=== PATIENT | male | born 1955 | race Caucasian/White ===

== ENCOUNTER 2019-04-01 07:17 | Inpatient (IN) | payer OTHER ==
[2019-03-28 15:32] VITALS: BMI 22.8
--- NOTE | 2019-04-01 06:50 | HP ---
History & Physical Update - History History: No Change - Physical Physical: No Change - Assessment Assessment: No Change - Plan Plan: No Change (LBP w/ RLE radiculopathy. L5/S1 spondylolithesis. Here today for elective L5/S1 TLIF.)
[2019-04-01] MEDS ORDERED: oxyCODONE HCL 10 MG SUSTAINED ACTING TABLET PO STA (08:30)
[2019-04-01] MEDS ORDERED: CEFAZOLIN 2 GM/D5W 2 GM/50 ML ML IVPB ONE (08:30)
[2019-04-01] MEDS ORDERED: oxyCODONE HCL 10 MG SUSTAINED ACTING TABLET PO ONE (08:45)
[2019-04-01] MEDS ORDERED: BUPIVACAINE LIPOSOME/PF (EXPAREL) 266 MG/20 ML VIAL ONE (09:02)
[2019-04-01] MEDS ORDERED: SODIUM CHLORIDE 0.9% P/F 10 ML VIAL IJ ONE (09:02)
[2019-04-01] MEDS ORDERED: MIDAZOLAM HCL 2 MG/2 ML SINGLE DOSE VIAL ONE ×3 (09:03→11:23)
[2019-04-01] MEDS ORDERED: EPHEDRINE SULFATE/0.9% NACL/PF 50 MG/10 ML SYRINGE NR ONE (11:29)
[2019-04-01] MEDS ORDERED: GUM MASTIC/STORAX/MSAL/ALCOHOL 1 DRP DROPSBTL MC ONE (12:56)
[2019-04-01] MEDS ORDERED: ONDANSETRON 4 MG/2 ML VIAL IVPUSH PRN ×2 (13:06→13:25)
--- NOTE | 2019-04-01 13:22 | OP ---
Operative Note - Note: Operative Date: 04/01/19 Pre-Operative Diagnosis: L5/S1 spondylolithesis with RLE radiculopathy Operation: L5/S1 TLIF Post-Operative Diagnosis: Same as Pre-op Surgeon: Derek Griffin Automated Process Operator: Catarino Garcia Anesthesiologist/GUN NUMBERER: Juan Chapa Anesthesia: Spinal Specimens Removed: L5/S1 disc Estimated Blood Loss (mls): 30 Fluid Volume Replaced (mls): 1,000 Operative Report Dictated: Yes
--- NOTE | 2019-04-01 13:24 | SURG ---
Surgery Product Marketing Analyst Note Product Marketing Analyst: Catarino Garcia PA-C Date of Service: 04/01/19 Diagnosis: L5/S1 spondylolithesis with right lower extremity radiculopathy Procedure: Posterior lumbar decompression / fusion / instrumentation / transforaminal lumbar interbody fusion L5/S1 with allograft / neuromonitoring I was present for the entirety of the operative procedure. For further detail, please refer to operative report. Visit type - Case Type Case Type: Scheduled - New patient This patient is new to me today: Yes Date on this admission: 04/01/19
[2019-04-01] MEDS ORDERED: oxyCODONE HCL 5 MG TABLET PO PRN (13:25)
[2019-04-01] MEDS ORDERED: ACETAMINOPHEN 1000 MG/100 ML VIAL (NON FORMULARY) IVPB PRN (13:25)
[2019-04-01] MEDS: ACETAMINOPHEN 325 MG TABLET (FP) PO SCH (13:30)
[2019-04-01] MEDS: LACTATED RINGERS SOLUTION 1,000 ML IV SCH (13:30)
[2019-04-01] MEDS ORDERED: LACTATED RINGERS SOLUTION 1,000 ML IV SCH (13:30)
[2019-04-01] MEDS: CEFAZOLIN 1 GM/D5W 1 GM/50 ML BAG IVPB SCH (17:51)
[2019-04-01] MEDS: diazePAM 2 MG TABLET PO SCH (21:26)
[2019-04-01] MEDS ORDERED: ATORVASTATIN CA 10 MG TABLET (FP) PO SCH (22:00)
[2019-04-02] MEDS: ACETAMINOPHEN 325 MG TABLET (FP) PO SCH ×3 (00:03→11:49)
[2019-04-02] MEDS: CEFAZOLIN 1 GM/D5W 1 GM/50 ML BAG IVPB SCH ×2 (02:21→10:33)
[2019-04-02] MEDS: oxyCODONE HCL 5 MG TABLET PO PRN ×2 (03:53→11:50)
[2019-04-02 08:01] LABS: CALCIUM 8.6 mg/dl (8.5-10); CREATININE 1.1 mg/dl (0.55-1.3); POTASSIUM 3.8 mmol/L (3.5-5.1)
[2019-04-02 08:02] LABS: HEMOGLOBIN 11.8 GM/dl (11.7-16.9); MCH 33.8 pg (25.7-33.7); MCHC 34.8 g/dl (32.0-35.9); MEAN CELL VOLUME 97.1 fl (80-96); MEAN PLT VOLUME 7.9 fl (7.5-11.1); PLATELET COUNT 178 K/MM3 (134-434); RDW 12.2 % (11.9-15.9); WHITE BLOOD COUNT 11.2 K/mm3 (4.0-10.8)
--- NOTE | 2019-04-02 08:09 | DS ---
Physical Exam: SUBJECTIVE: Patient seen and examined OBJECTIVE: Vital Signs Temperature 99.0 F 04/02/19 06:00 Pulse Rate 70 04/02/19 06:00 Respiratory Rate 18 04/02/19 06:00 Blood Pressure 119/61 04/02/19 06:00 O2 Sat by Pulse Oximetry (%) 96 04/02/19 06:31 PHYSICAL EXAM GENERAL: The patient is awake, alert, and fully oriented, in no acute distress. HEAD: Normal with no signs of trauma. EYES: PERRL, extraocular movements intact, sclera anicteric, conjunctiva clear. ENT: Ears normal, nares patent, oropharynx clear without exudates, moist mucous membranes. NECK: Trachea midline, full range of motion, supple. LUNGS: Breathing comfortably, no accessory muscle use. BACK: dressing clean/intact, nontender EXTREMITIES: no weakness or numbness, warm, well-perfused, no edema. NEUROLOGICAL: Cranial nerves II through XII grossly intact. Normal speech, gait not observed. PSYCH: Normal mood, normal affect. SKIN: Warm, dry, normal turgor, no rashes or lesions noted. LABS CBC,CMP WBC 11.2 K/mm3 (4.0-10.8) H 04/02/19 07:20 RBC 3.50 M/mm3 (4.00-5.60) L 04/02/19 07:20 Hgb 11.8 GM/dl (11.7-16.9) 04/02/19 07:20 Hct 34.0 % (35.4-49) L 04/02/19 07:20 MCV 97.1 fl (80-96) H 04/02/19 07:20 MCH 33.8 pg (25.7-33.7) H 04/02/19 07:20 MCHC 34.8 g/dl (32.0-35.9) 04/02/19 07:20 RDW 12.2 % (11.9-15.9) 04/02/19 07:20 Plt Count 178 K/MM3 (134-434) 04/02/19 07:20 MPV 7.9 fl (7.5-11.1) 04/02/19 07:20 HOSPITAL COURSE: Date of Admission:04/01/19 Date of Discharge: 04/02/19 The patient was admitted to the Med-Surg Unit after an elective repair of their lumbar spondylosis Now, s/p L5-S1 TLIF. The day of surgery, the patient ambulated the hallways with assistance. Narcotic and non-narcotic pain management control was achieved with an oral and IV approach. POD #1, the surgical drain was removed fully intact and without incident. An xray was obtained and confirmed hardware placement at L5/S1, no fractures or dislocations. Marissa-operative IV ABX were administered. DVT prophylaxis was achieved with SCDs and early ambulation. The patient ambulated with Physical Therapy and no services were recommended upon discharge. Narcotic scripts and or muscle relaxants were checked with [place] [employer] CASE MANAGER prior to escibe. The discharge instructions and an oral pain management plan were reviewed with the patient. All questions answered. Above plan discussed with Dr. Griffin and agreed. Minutes to complete discharge: 20 Visit type - Case Type Case Type: Scheduled - Emergency Emergency Visit: No - New patient This patient is new to me today: No - Critical Care Critical Care patient: No
[2019-04-02] MEDS ORDERED: SODIUM CHLORIDE 0.9% 500 ML INFUS.BAG IV ONE (08:31)
--- NOTE | 2019-04-02 08:55 | OP ---
DATE OF OPERATION: 04/01/2019 PREOPERATIVE DIAGNOSES: 1. Spinal stenosis, L5-S1. 2. Spondylolisthesis, L5-S1. POSTOPERATIVE DIAGNOSES: 1. Spinal stenosis, L5-S1. 2. Spondylolisthesis, L5-S1. PROCEDURE PERFORMED: 1. Transforaminal lumbar interbody fusion, L5-S1. 2. Placement of instrumentation, L5-S1. 3. Placement of prosthetic cage. SURGEON: Derek Griffin MD INTERNATIONAL MARKETING MANAGER: DERRELL Ortega ESTIMATED BLOOD LOSS: 50 mL. INTRAVENOUS FLUIDS: Per anesthesia. ANESTHESIA: Spinal/TLIP. COMPLICATIONS: There were none. DISPOSITION: Patient brought to the PACU in stable condition. INDICATION FOR SURGERY: Patient is a 64-year-old gentleman who has been suffering from pain from his back down his legs. X-rays and MRI were completed which showed that he had spinal stenosis at L5-S1 with pain down his legs. He had gone through an exhaustive course of treatment for this which included medications, physical therapy as well as injections. Unfortunately his pain continued to persist despite all this. At this point risks, benefits, alternatives were discussed and the patient consented to surgery. DESCRIPTION OF PROCEDURE: Patient brought to the operating room by anesthesia staff. After appropriate patient identification was performed spinal anesthesia was given. A TLIP block was also given. Patient was able to position himself prone on to the OR table with all areas of bony prominences well padded. At this time 2 needles were placed into his back to bhavesh off the L5-S1 pedicles. His back was prepped and draped in the usual sterile manner. At this point timeout was completed. Incisions were made bilaterally over the L5-S1 pedicles. Dissection was carried down to the fascia. Fascia was then split at this time. Under C-arm guidance trocars were advanced into both the L5 and S1 pedicles. Through the trocars a wire was inserted. Over the wire tap was performed and screws inserted. On the right-hand side retractor blades were set up to expose the L5- S1 facet joint. The facet joint was removed. The disk was entered using a series of pituitaries, Kerrisons and curets. A diskectomy was completed. The endplates were decorticated at this time. Bone graft was laid down. A cage filled with bone graft was placed in. Tulip heads were placed over the screws. A danay was measured and placed in the caps. Compression was applied. On the left-hand side a danay was measured, placed in the caps and compression was applied. All x-rays confirmed instrumentation was removed at this time. The fascia was closed with a No. 1 Vicryl suture. The subcutaneous tissue was closed with 2-0 Vicryl suture. Skin was closed with 3-0 Monocryl suture. Dermabond was applied. Steri-Strips were applied. A sterile dressing was applied. Patient placed supine on the OR bed and brought to the PACU in stable condition. Teressa [id number] MTDD
--- NOTE | 2019-04-02 09:17 | PN ---
Progress Note (short form) - Note Progress Note: ANESTHESIA POSTOP: 64 yo male, POD#1, s/p lumbar fusion Patient sitting in chair. No complaints. Tolerating PO. Pain adequately controlled. VSS, Afebrile Continue current care, encouraged IS and ambulation. No anesthetic complications.
[2019-04-02] MEDS: diazePAM 2 MG TABLET PO SCH (09:32)
[2019-04-02] MEDS ORDERED: CYANOCOBALAMIN 1,000 MCG TABLET (FP) PO SCH (10:00)
[2019-04-02] MEDS ORDERED: ASCORBIC ACID 500 MG TABLET (FP) PO SCH (10:00)
[2019-04-02] MEDS ORDERED: LISINOPRIL 5 MG TABLET (FP) PO SCH (10:00)
[2019-04-02] MEDS ORDERED: CHOLECALCIFEROL (VIT D3) 1,000 UNIT (25 MCG) TABLET PO SCH (10:00)
[2019-04-02] MEDS ORDERED: ENOXAPARIN NA (PORCINE) 40 MG/0.4 ML DISP.SYRIN SQ SCH (10:00)
[2019-04-02] MEDS ORDERED: PANTOPRAZOLE 20 MG TABLET PO SCH (10:00)
[2019-04-02] MEDS ORDERED: MULTIVITAMINS (DAILY MVI) TABLET (FP) PO SCH (10:00)
[2019-04-02 10:44] LABS: CALCIUM 8.3 mg/dl (8.5-10); CREATININE 1.2 mg/dl (0.55-1.3); POTASSIUM 4.1 mmol/L (3.5-5.1)
[2019-04-02 13:22] VITALS: BP 128/60; PULSE 75; TEMP 98.7
[2019-04-02] MEDS: LACTATED RINGERS SOLUTION 1,000 ML IV SCH (13:28)
== END 2019-04-02 15:45 | disposition home or self-care (01) | DRG 460 ==
LOC: FM/S 07:17
PROVIDERS: ADMIT Orthopaedic Surgery Orthopaedic Surgery of the Spine; ATTEND Orthopaedic Surgery Orthopaedic Surgery of the Spine
PROC: 0SG30AJ Fusion of Lumbosacral Joint with Interbody Fusion Device, Posterior Approach, Anterior Column, Open Approach (ICD-10-PCS; principal; 2019-04-01 11:32)
DX: M43.17 Spondylolisthesis, lumbosacral region (principal); M54.17 Radiculopathy, lumbosacral region; M48.07 Spinal stenosis, lumbosacral region
CPT/HCPCS: 36415; 72100-TC-FY; 76000-TC-FY; 80048; 85027; 94760; J0131